=== PATIENT | female | born 1980 | race Caucasian/White ===

== ENCOUNTER 2023-05-05 22:42 | Emergency (ER) | payer OTHER ==
[~2023-05-05] VITALS: Ht 177.8 cm; Wt 64.0 kg
[2023-05-06] MEDS ORDERED: CLIN-142 PO (00:36)
[2023-05-06] MEDS ORDERED: BACITRACIN 0.9 GM PACKET OINTMENT TP ONE (00:45)
[2023-05-06 00:59] VITALS: BP 130/72; PULSE 75; RESP 16; TEMP 99
== END 2023-05-06 00:58 | disposition home or self-care (01) ==
LOC: EMS 22:42
DX: L03.115 Cellulitis of right lower limb (principal)
CPT/HCPCS: 99282; Z7502